=== PATIENT | female | born 1980 | race Caucasian/White ===

== ENCOUNTER 2017-05-17 19:38 | Emergency (ER) | payer OTHER ==
[2017-05-17] MEDS ORDERED: Sodium Chloride 0.9% 1,000 ML IV ONE (21:16)
[2017-05-17] MEDS ORDERED: Sodium Chloride 0.9% 1,000 ML ONE (21:33)
[2017-05-17 22:28] LABS: CHLORIDE 104 mmol/L (98-107); POTASSIUM 3.5 mmol/L (3.6-5.2); SODIUM 133 mmol/L (132-148)
[2017-05-17 22:29] LABS: RBC URINE 1 /hpf (0-3); URINE BACTERIA RARE (<OCC); URINE BILIRUBIN NEGATIVE (NEGATIVE); URINE BLOOD NEGATIVE (NEGATIVE); URINE COLOR Colorless (YELLOW); URINE GLUCOSE (UA) NORMAL (Normal); URINE KETONE NEGATIVE (NEGATIVE); URINE LEUKOCYTE ESTERASE 1+ Leu/uL (Negative); URINE PROTEIN NEGATIVE (NEGATIVE); URINE UROBILINOGEN NORMAL mg/dL (0.2-1.0); WBC URINE 1 /hpf (0-5)
[2017-05-17 22:31] LABS: ALB/GLOB RATIO 1.7 (1.0-2.1); ALKALINE PHOSPHATASE 60 U/L (38-126); ALT/SGPT 28 U/L (9-52); AST/SGOT 19 U/L (14-36); BILIRUBIN,TOTAL 0.7 mg/dL (0.2-1.3); BLOOD UREA NITROGEN 7 mg/dL (7-17); CALCIUM 8.4 mg/dl (8.6-10.4); CARBON DIOXIDE 17 mmol/L (22-30); GFR AFRICAN-AMERICAN > 60; GLUCOSE,RANDOM 92 mg/dL (65-105); TOTAL PROTEIN 6.6 g/dL (6.3-8.3)
[2017-05-17 22:32] LABS: BASO # 0.1 K/uL (0.0-0.2); BASO % 0.6 % (0.0-2.0); EOS # 0.2 K/uL (0.0-0.7); HEMATOCRIT 36.4 % (34.0-47.0); LYMPH # 2.3 K/uL (1.0-4.3); LYMPH % 24.9 % (20.0-40.0); MEAN CELL VOLUME 90.4 fL (81.0-99.0); MEAN CORPUSCULAR HEMOGLOBIN 29.6 pg (27.0-31.0); MEAN CORPUSCULAR HGB CONC 32.7 g/dL (33.0-37.0); MEAN PLATELET VOLUME 10.3 fL (7.2-11.7); MONO # 0.6 K/uL (0.0-0.8); MONO % 6.3 % (0.0-10.0); RED CELL DISTRIBUTION WIDTH 14.2 % (11.5-14.5); WHITE BLOOD COUNT 9.2 K/uL (4.8-10.8)
--- NOTE | 2017-05-17 23:23 | US ---
EXAM: US Pelvis,Transabdominal and Transvaginal CLINICAL HISTORY: 37 years old, female; Pain; Pelvic pain TECHNIQUE: Real-time transabdominal and transvaginal pelvic ultrasound (complete) with image documentation. Transvaginal imaging was used for better evaluation of the endometrium and adnexa. COMPARISON: No relevant prior studies available. FINDINGS: Uterus/cervix: Unremarkable in echogenicity and size measuring 9.1 x 3.3 x 6.1 cm. The uterus is heterogeneous in echogenicity. Normal endometrial stripe thickness measuring 9 mm. No myometrial mass. A single fibroid is identified, measuring 2 cm in greatest dimension. Right ovary: Unremarkable in echogenicity and size measuring 2.5 x 1.8 x 2.9 cm. No mass. Normal blood flow. Left ovary: Unremarkable in size measuring 3.0 x 1.8 x 2.2 cm. An anechoic focus is identified within the left ovary measuring 10 mm in greatest dimension. No mass. Normal blood flow. Free fluid: No free fluid. IMPRESSION: Fibroid uterus. 10 mm simple cyst within the left ovary, as detailed above
--- NOTE | 2017-05-17 23:25 | C.PDOC ---
History Of Present Illness 37 yo female c/o nausea, vomiting and abdominal pain since yesterday. Pt decribes the pain as "knots" and notes that it started after her and her daughter shared a meal and they both started getting the same symptoms. Also notes right groin pain. worse with movement radiating down the leg. No vaginal bleeding or discharge. No fever. Time Seen by Provider: 05/17/17 21:07 Chief Complaint (Nursing): Abdominal Pain History Per: Patient History/Exam Limitations: no limitations Onset/Duration Of Symptoms: Days (1) Context: Food Location Of Pain/Discomfort: Diffuse Radiation Of Pain To:: Leg Quality Of Discomfort: Other ("knots") Associated Symptoms: Nausea, Vomiting. denies: Diarrhea, Loss Of Appetite, Back Pain, Chest Pain, Constipation, Urinary Symptoms Exacerbating Factors: Movement Alleviating Factors: None Additional History Per: Patient Abnormal Vaginal Bleeding: No Past Medical History Reviewed: Historical Data, Nursing Documentation, Vital Signs Vital Signs: Last Vital Signs Temp 98.7 F 05/18/17 00:30 Pulse 80 05/18/17 00:30 Resp 20 05/18/17 00:30 BP 121/71 05/18/17 00:30 Pulse Ox 100 05/20/17 11:34 Family History: States: No Known Family Hx - Social History Hx Tobacco Use: No Hx Alcohol Use: No Hx Substance Use: No - Immunization History Hx Tetanus Toxoid Vaccination: No Hx Influenza Vaccination: No Hx Pneumococcal Vaccination: No Review Of Systems Except As Marked, All Systems Reviewed And Found Negative. Constitutional: Negative for: Fever, Chills Gastrointestinal: Positive for: Nausea, Vomiting, Abdominal Pain. Negative for : Diarrhea, Constipation, Hematemesis Genitourinary: Positive for: Pelvic Pain (right groin pain). Negative for: Dysuria, Frequency, Hematuria, Vaginal Discharge, Vaginal Bleeding Musculoskeletal: Positive for: Leg Pain. Negative for: Back Pain Physical Exam - Physical Exam Appears: Non-toxic, No Acute Distress Skin: Normal Color, Warm, Dry Head: Atraumatic, Normacephalic Eye(s): bilateral: Normal Inspection, EOMI Nose: Normal Oral Mucosa: Moist Neck: Normal ROM, Supple Chest: Symmetrical Cardiovascular: Rhythm Regular, No Murmur Respiratory: Normal Breath Sounds, No Rales, No Rhonchi, No Wheezing Gastrointestinal/Abdominal: Soft, Tenderness (mild suprapubic/right sided tenderness), No Guarding, No Rebound Back: Normal Inspection, No CVA Tenderness, No Vertebral Tenderness Extremity: Normal ROM, No Tenderness, No Pedal Edema Neurological/Psych: Oriented x3, Normal Speech ED Course And Treatment - Laboratory Results Result Diagrams: 05/17/17 22:14 05/17/17 22:14 O2 Sat by Pulse Oximetry: 100 (RA) Pulse Ox Interpretation: Normal - CT Scan/US Pelvic US Other Rad Studies (CT/US): Read By Radiologist, Radiology Report Reviewed CT/US Interpretation: [employer]. [facility] Division of Radiology. [address] [place] [address]. Tel. no. . . . Patient Name: WIN LU . Pt. Address: [address] [place] [address]. Rec #: [id number]. [place] [address]: Yeni Lambert PA-C. Pt Phone: Order Location: [facility] : 1980 Female Age: 37 Order #: [id number]. Reason for exam: pain. . . . . . Ultrasound. . . PELVIS/TRANSVAG US Exam Date: 05/17/17. . This imaging exam was performed at [facility]. . . EXAM: US Pelvis,Transabdominal and Transvaginal. . CLINICAL HISTORY: 37 years old, female; Pain; Pelvic pain. . TECHNIQUE: Real -time transabdominal and transvaginal pelvic ultrasound (complete) with. image documentation. Transvaginal imaging was used for better evaluation of. the endometrium and adnexa. . COMPARISON: No relevant prior studies available. . FINDINGS: Uterus/cervix: Unremarkable in echogenicity and size measuring 9.1 x 3.3 x. 6.1 cm. The uterus is heterogeneous in echogenicity. Normal endometrial stripe. thickness measuring 9 mm. No myometrial mass. A single fibroid is identified,. measuring 2 cm in greatest dimension. Right ovary: Unremarkable in echogenicity and size measuring 2.5 x 1.8 x 2.9. cm. No mass. Normal blood flow. Left ovary: Unremarkable in size measuring 3.0 x 1.8 x 2.2 cm. An anechoic. focus is identified within the left ovary measuring 10 mm in greatest. dimension. No mass. Normal blood flow. Free fluid: No free fluid. . IMPRESSION: Fibroid uterus. 10 mm simple cyst within the left ovary , as detailed above Progress Note: Blood work, UA, Pelvis/Transvag ultrasound ordered and reviewed. Patient was treated with Pepcid, Toradol, Zofran, and IV fluids. On re-eval, abdomen remains soft and non-tender, no acute distress. Pt tolerating PO. Patient is being discharged home with instructions to follow up with PMD in 1-2 days for further evaluation. 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 Disposition - Disposition Disposition: HOME/ ROUTINE Disposition Time: 23:25 Condition: STABLE Additional Instructions: Follow up with PMD/ S[employer]IOR [employer] DEVELOPER in 1-2 days. REturn to ER if symtpoms persist or worsen. 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 - Scribe Statement The provider has reviewed the documentation as recorded by the Scribe Sydney Abdalla All medical record entries made by the Rishabh were at my direction and personally dictated by me. I have reviewed the chart and agree that the record accurately reflects my personal performance of the history, physical exam, medical decision making, and the department course for this patient. I have also personally directed, reviewed, and agree with the discharge instructions and disposition.
[2017-05-18 00:51] VITALS: BP 121/71; PULSE 80; RESP 20; TEMP 98.7
[2017-05-20 11:30] VITALS: O2SAT 100
== END 2017-05-18 00:30 | disposition home or self-care (01) ==
LOC: C.ER 19:38
DX: D25.9 Leiomyoma of uterus, unspecified (principal); R10.31 Right lower quadrant pain
CPT/HCPCS: 76830; 76856; 80053; 81001; 83690; 84703; 85025; 96361; 96374; 96375; 99284; J1885; J2405; J7040

== ENCOUNTER 2018-10-13 21:54 | Emergency (ER) | payer OTHER ==
[2018-10-13 23:04] VITALS: BP 157/82; PULSE 89; RESP 20; TEMP 97.9; O2SAT 100
[2018-10-13] MEDS ORDERED: DiphenhydrAMINE 50 mg/ml Inj ONE (23:25)
[2018-10-13] MEDS ORDERED: DiphenhydrAMINE 50 mg/ml Inj IM STA (23:28)
--- NOTE | 2018-10-14 00:27 | C.PDOC ---
History Of Present Illness 38 year old female presents to the ED for evaluation of hives and itchiness which began around 3 days ago. Patient states she has been trying a new diet consisting of garlic, mandarin and artichoke. Patient developed her symptoms shortly after starting this diet. She has taken Benadryl, but states she still experiences unbearable itchiness and presents for further evaluation. She denies throat swelling/closing sensation, tongue swelling, cough, shortness of breath. Time Seen by Provider: 10/13/18 23:08 Chief Complaint (Nursing): Allergic Reaction History Per: Patient History/Exam Limitations: no limitations Onset/Duration Of Symptoms: Days (3) Current Symptoms Are (Timing): Still Present Context: Food Possible Cause: Food Associated Symptoms: Itching Home/EMS Treatment: Benadryl Additional History Per: Patient Past Medical History Reviewed: Historical Data, Nursing Documentation, Vital Signs Vital Signs: Last Vital Signs Temp 97.9 F 10/13/18 22:56 Pulse 89 10/13/18 22:56 Resp 20 10/13/18 22:56 BP 157/82 H 10/13/18 22:56 Pulse Ox 100 10/13/18 22:56 - Medical History PMH: No Chronic Diseases Surgical History: No Surg Hx Family History: States: Unknown Family Hx - Social History Hx Tobacco Use: No Hx Alcohol Use: No Hx Substance Use: No - Immunization History Hx Tetanus Toxoid Vaccination: No Hx Influenza Vaccination: No Hx Pneumococcal Vaccination: No Review Of Systems Constitutional: Negative for: Fever, Chills, Weakness ENT: Negative for: Mouth Swelling, Throat Pain, Throat Swelling Cardiovascular: Negative for: Chest Pain Respiratory: Negative for: Cough, Shortness of Breath Gastrointestinal: Negative for: Nausea, Vomiting, Abdominal Pain Skin: Positive for: Other (itchiness and hives ) Neurological: Negative for: Weakness, Numbness, Dizziness Physical Exam - Physical Exam Appears: Well, Non-toxic, No Acute Distress Skin: Normal Color, Warm, Rash (urticarial rash to bilateral arms and abdominal regions ) Head: Atraumatic, Normacephalic, No Other (facial angioedema ) Eye(s): bilateral: Normal Inspection, PERRL, EOMI Oral Mucosa: Moist Tongue: Normal Appearing, No Swelling Lips: Normal Appearing, No Swelling Throat: Normal (no swelling or injection ), No Exudate, Other (airway patent ) Chest: Symmetrical Respiratory: No Accessory Muscle Use, No Wheezing, Other (normal inspiratory effort ) Gastrointestinal/Abdominal: Soft, No Distention Extremity: Normal ROM Extremity: Bilateral: Atraumatic Neurological/Psych: Oriented x3, Normal Cranial Nerves (grossly intact ) ED Course And Treatment O2 Sat by Pulse Oximetry: 100 (on RA) Pulse Ox Interpretation: Normal Medical Decision Making Medical Decision Making: Benadryl IM and Prednisone PO given. One hour s/p treatment, patient states her symptoms have improved and is requesting discharge. Patient's urticaria has resolved and she is stable for discharge. I discussed signs/symptoms of concern with patient and she is advised to return to the ED immediately if symptoms worsen. 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 - Scribe Statement The provider has reviewed the documentation as recorded by the Scribe (Naomie Abdalla) All medical record entries made by the Scribe were at my direction and personally dictated by me. I have reviewed the chart and agree that the record accurately reflects my personal performance of the history, physical exam, medical decision making, and the department course for this patient. I have also personally directed, reviewed, and agree with the discharge instructions and disposition.
== END 2018-10-14 00:41 | disposition home or self-care (01) ==
LOC: C.ER 21:54
DX: L50.0 Allergic urticaria (principal)
CPT/HCPCS: 96372; 99283; J1200